=== PATIENT | male | born 1980 | race Caucasian/White ===

== ENCOUNTER 2016-09-25 11:27 | Emergency (ER) | payer MEDICARE ==
[2016-09-25 12:51] LABS: BASO # 0.1 10_X3_uL (0.0-0.1); BASO % 0.6 % (0.2-1.2); EOS % 0.2 % (0.8-7.0); GRAN # 6.8 10_X3_uL (1.8-5.4); GRAN % 73.3 % (34.0-67.9); HEMATOCRIT 41.2 % (40-51); HEMOGLOBIN 14.6 g/dL (13.7-17.5); LYMPH % 21.6 % (21.8-53.1); MEAN CORPUSCULAR HEMOGLOBIN 32.7 pg (27.0-33.0); MEAN CORPUSCULAR HGB CONC 35.4 g/dL (32.0-36.0); MEAN CORPUSCULAR VOLUME 92.4 fL (79-92); MEAN PLATELET VOLUME 9.5 fl (7.5-11.5); MONO # 0.4 10_X3_uL (0.3-0.8); MONO % 4.3 % (5.3-12.2); PLATELET COUNT 398 x10_3/uL (163-337); RED BLOOD COUNT 4.46 x10_6/uL (4.6-6.1); RED CELL DISTRIBUTION WIDTH 15.3 % (11.6-14.4); WHITE BLOOD COUNT 9.3 x10_3/uL (4.2-9.1)
[2016-09-25 13:05] LABS: BLOOD UREA NITROGEN 9 mg/dL (7-18); CARBON DIOXIDE 25 mmol/L (21-32); CREATINE KINASE 87 U/L (35-232); CREATININE 0.7 mg/dL (0.6-1.3); GLUCOSE,RANDOM 122 mg/dL (70-99); SODIUM 144 mmol/L (136-145)
[2016-09-25 16:56] LABS: ALBUMIN 4.2 gm/dL (3.4-5.0); ALKALINE PHOSPHATASE 89 U/L (50-136); ALT/SGPT 118 U/L (7.53-40.17); AST/SGOT 83 U/L (6.66-35.34); BILIRUBIN,TOTAL 0.79 mg/dL (0.0-1.0); TOTAL PROTEIN 7.2 gm/dL (6.4-8.2)
[2016-09-25 16:58] LABS: BILIRUBIN,DIRECT < 0.20 mg/dL (0.0-0.30)
== END 2016-09-25 18:40 | disposition short-term general hospital (02) ==
LOC: ER 11:27
PROVIDERS: Emergency Medicine
DX: R11.2 Nausea with vomiting, unspecified (principal); R00.1 Bradycardia, unspecified; Z90.81 Acquired absence of spleen; R42 Dizziness and giddiness; F17.210 Nicotine dependence, cigarettes, uncomplicated; Z79.899 Other long term (current) drug therapy
CPT/HCPCS: 36415; 80048; 80076; 80307; 82550; 82553; 85025; 87400; 93005; 96361; 96374; 96375; 96376; 99070; 99284-25; J2765; J7635